=== PATIENT | male | born 1965 | race Caucasian/White ===

== ENCOUNTER 2019-09-03 17:58 | Observation (INO) | payer OTHER, SELFPAY ==
[2019-09-03] VITALS (8 sets, daily range): BP systolic 120–137; BP diastolic 73–92; PULSE 54–64; RESP 13–18; TEMP 36.5–36.6; O2SAT 99–100; BMI 33.4; BMI 32.1
--- NOTE | 2019-09-03 18:14 | EKG12_ITS ---
Test Reason : CP Blood Pressure : / mmHG Vent. Rate : 060 BPM Atrial Rate : 060 BPM P-R Int : 208 ms QRS Dur : 094 ms QT Int : 420 ms P-R-T Axes : 026 -24 034 degrees QTc Int : 420 ms Normal sinus rhythm Normal ECG Confirmed by JYOTI WAY, PAMELLA ([id number]), editor at large RENUKA CAZARES ([id number]) on 09/08/2019 12:48:22 PM Referred By: Sunday Hein Confirmed By:JACI MONTES MD
--- NOTE | 2019-09-03 18:20 | ED.VISSUMM ---
- ER Visit Summary Date of Service: 09/03/19 Chief Complaint: Chest pain History of Present Illness: The patient is a 53 M presenting with chest pain. He states this started this morning. Pain has been intermittent. It is worsened with exertion. He also has dyspnea with exertion. He has dizziness with no syncope. He has had nausea with no vomiting. He denies diaphoresis. He states that he has had increasing lower leg swelling over the past couple of months. He is not on Lasix. He has a history of previous CABG and aortic valve replacement. Strong family history of heart disease. He is not a smoker. Physical Examination: Vitals are stable. Patient is afebrile. Alert no acute distress. HEENT exam is unremarkable. Neck is supple. Lungs are clear and equal bilaterally. Heart is regular rate and rhythm. Abdomen is soft nontender nondistended. Extremities symmetric edema Skin is warm and dry. No focal neurologic deficit. Remainder of exam is unremarkable. Emergency Department Course and Treatment: Patient was given aspirin on arrival. EKG is sinus rhythm rate of 60 with no acute ischemic changes. CBC, chemistries unremarkable other than BUN 24, creatinine 1.35. Troponin is negative. BNP 91.1. Chest x-ray shows nonacute portable x-ray examination of the chest. On reevaluation, patient is resting comfortably. Discussed with the hospitalist for observation. Disposition: Observation Impression: Chest pain This note was generated with [employer] dictation software. It may contain incorrect words, spelling, and punctuation that were not noted in review of the chart prior to signing ED Disposition - Plan for ED Patient: Referrals: Care Physician,No Primary [Primary Care Provider] -
[2019-09-03] MEDS: Aspirin 81 MG TAB.CHEW 324 MG PO (18:21)
[2019-09-03 18:23] LABS: Absolute Lymphocyte Count 1.07 X10^3/uL (0.83-4.51); Basophil# 0.04 X10^3/uL; Basophil% 0.8 % (0-1); Eosinophil# 0.22 X10^3/uL; Eosinophils% 4.5 % (0-5); Hematocrit 35.7 % (40-54); Hemoglobin 11.3 g/dL (13.0-16.5); Lymphocyte # 1.07 X10^3/ul (4.0); Mean Corp Hgb Conc 31.7 g/dL (32-36); Mean Corpuscular Hgb 29.1 pg (27.0-32.0); Mean Platelet Vol. 10.3 fl (6.2-12.0); Monocyte# 0.57 X10^3/uL; Monocyte% 11.7 % (0-10); NRBC Flagged by Analyzer 0 % (0-5); Neutrophil # 2.96 X10^3/uL (2.7-7.7); Neutrophil % 60.8 % (47-70); Platelet Count 183 K/mm3 (150-450); RBC Distribution Width CV 12.5 % (11.6-14.6); RBC Distribution Width SD 42.2 fl (35.1-43.9); Red Blood Count 3.88 M/mm3 (4.6-6.2); White Blood Count 4.9 K/mm3 (4.4-11.0)
--- NOTE | 2019-09-03 18:26 | RAD_ITS ---
STUDY: X-RAY CHEST REASON FOR EXAM: Male, 53 years old. Chest pain TECHNIQUE: AP COMPARISON: None. FINDINGS: EKG leads project over the chest. Sternal wires and mediastinal surgical clips compatible with prior CABG. The lungs are clear and expanded. There is no demonstrated pleural abnormality. There is mild cardiac enlargement. Normal mediastinum and gris. Normal visualized pulmonary arteries. Normal visualized aortic arch and descending thoracic aorta. No acute bony process. There is no demonstrated abnormality of the visualized soft tissue structures of the upper abdomen. RAD/Chest 1 View (Portable) IMPRESSION: Nonacute portable x-ray examination of the chest. Electronically Signed: Cassius Noguera MD (Brooks) at 18:42 EST , Service support ,
[2019-09-03 18:47] LABS: Anion Gap 3 (5-15); BUN 24 mg/dL (7-18); BUN/Creat Ratio 17.8 RATIO (10-20); Calcium,Total 9.3 mg/dL (8.5-10.1); Chloride 104 mmol/L (98-107); Creatinine, Serum 1.35 mg/dL (0.70-1.30); EST Glomerular Filtration Rate 59 mL/min (>60); Est Glom Filt Rate - Afr Amer 71 mL/min (>60); Estimated Creatinine Clearance 71.52 ml/min; Glucose 100 mg/dL (74-106); Potassium 4.2 mmol/L (3.5-5.1); Sodium Level 137 mmol/L (136-145)
[2019-09-03 18:57] LABS: BNP,B-Type NATRIURETIC PEPTIDE 91.1 pg/mL (0-100)
--- NOTE | 2019-09-03 19:15 | HP.PCM_ITS ---
Problem List (1) Chest pain Status: Acute History of Present Illness Date of Admission: 09/03/19 Chief Complaint: chest pain The patient is a 53 year old M with a significant history of CAD status post CABG in 2013; bovine aortic valve in 2011; history of alcoholism and drug use who presented to the emergency department with chest pain. His chest pain began on the same day of presentation. His chest pain is located on the left side of his chest. He described the pain as episodic dullness with a tightness. The pain intensity is not more than 3. He denies any aggravating factors to the pain. When he takes a deep breath and when he slows down the pain improves. The chest pain is nonradiating. Associated with his symptoms is shortness of breath with exertion. Also he reports some swelling in his legs and leg cramps that has been going on for about the last 3 months. Because of leg cramps he has been sleeping in a recliner. He reported that in the last couple of weeks he has been having malaise. Past Medical History Medical History: Medical History (Last Updated 09/03/19 @ 21:25 by Sunday Hein MD) HTN (hypertension) I10 Allergies No Known Allergies Allergy (Verified 09/03/19 18:02) Home Medications: Ambulatory Orders Medication Instructions Recorded Buprenorphine HCl/Naloxone HCl 1 film SL BID 09/03/19 [Suboxone 8 mg-2 mg Sl Film] Lisinopril [Prinivil] 10 mg PO DAILY 09/03/19 Metoprolol(XL)Succ [Toprol Xl 50 mg PO DAILY 09/03/19 (Beta Jorge L)] Nitroglycerin [Nitrostat] 0.3 mg SL DAILY 09/03/19 Surgical History: coronary bypass surgery, - - Bovine aortic valve replacement; knee reconstruction surgery Lives: Roommate Smoking Status: Never smoker Alcohol: Sober Drugs: - - Sober - *Family History Maternal History Items: Cancer, Heart Disease Paternal History Items: Cancer - His father from metastatic cancer likely originating from his throat., Heart Disease - His father had several heart attacks with a first heart attack in his early 50s. Review of Systems Constitutional: Reports: Weight Change - 30 pounds weight gain in 5 months. Denies: Chills, Fever HEENT: Denies: Head Aches, Sinus Congestion, Sinus Drainage Cardiovascular: Reports: Chest Pain, Edema. Denies: Palpitations, Paroxysmal Noc. Dyspnea Respiratory: Reports: Shortness of breath upon exertion. Denies: Cough, Shortness of breath at rest, Sputum production Gastrointestinal: Reports: Nausea. Denies: Abdominal Pain, Vomiting Genitourinary: Denies: Dysuria Musculoskeletal: Denies: Joint Pain, Joint Tenderness Skin: Denies: Rash, Wounds Neurological: Denies: Numbness, Tingling, Focal weakness Psychiatric: Reports: Depression. Denies: Anxiety, Homicidal Ideations, Suicidal Ideations Hematologic/ Lymphatic: Denies: Easy Bruising, Easy Bleeding VTE Information - Inpt Only VTE Present on Admission: No VTE Mechan Device Prophylaxis: SCD's VTE Pharm Prophylaxis ordered?: No Patient Problems: Active and Suspected Problems (Last Updated 09/03/19 @ 21:25 by Sunday Hein MD) Chest pain (Acute) - Physical Exam Vitals/I&O's: Vital Signs Temp Pulse Resp BP Pulse Ox 97.7 F L 64 16 128/84 H 99 09/03/19 17:59 09/03/19 17:59 09/03/19 17:59 09/03/19 17:59 09/03/19 18:14 Oxygen Delivery Method Room Air Weight: 114.895 kg Body Mass Index (BMI) 33.4 General: Alert, Oriented x3, Cooperative HEENT: Atraumatic, PERRLA, EOMI, Normocephalic Neck: Supple, No JVD, Negative Carotid Bruits Lungs: Clear to auscultation, Normal air movement Cardiovascular: Regular rate, No murmurs Abdomen: Bowel Sounds Present, Soft, Non Tender Extremities: Capillary Refill Less than 3 Seconds, Edema - Bilateral feet Skin: No rashes, No breakdown Musculoskeletal: No Tenderness to Palpation of Joints or Extremities Neurological: Cranial nerves II-XII grossly intact Psych/Mental Status: Normal Affect, Appropriate Laboratory Results 09/03/19 18:02: WBC 4.9, RBC 3.88 L, Hgb 11.3 L, Hct 35.7 L, MCV 92.0, MCH 29.1, MCHC 31.7 L, RDW Std Deviation 42.2, RDW Coeff of Ramírez 12.5, Plt Count 183, MPV 10.3, Immature Gran % (Auto) 0.200, Neut % (Auto) 60.8, Lymph % (Auto) 22.0, Marshall % (Auto) 11.7 H, Eos % (Auto) 4.5, Baso % (Auto) 0.8, Absolute Neuts (auto) 3.0, Absolute Lymphs (auto) 1.07, Nucleated RBC % 0 09/03/19 18:02: Sodium 137, Potassium 4.2, Chloride 104, Carbon Dioxide 30.0, Anion Gap 3 L, BUN 24 H, Creatinine 1.35 H, Estim Creat Clear Calc 71.52, Est GFR (MDRD) Af Amer 71, Est GFR (MDRD) Non-Af 59 L, BUN/Creatinine Ratio 17.8, Glucose 100, Calcium 9.3, Troponin I < 0.015 09/03/19 18:02: B-Natriuretic Peptide 91.1 Assessment/Plan All Active Problems (Last Updated 09/03/19 @ 21:25 by Sunday Hein MD) Chest pain (Acute) The patient is a 53 year old M with a significant history of CAD status post CABG in 2013; bovine aortic valve in 2011; history of alcoholism and drug use; who presented to the emergency department with chest pain; dyspnea on exertion; bilateral leg swelling and leg cramps. Chest pain Placed on a monitored bed at pcu CXR independently reviewed confirms no acute cardiopulmonary process. EKG independently reviewed confirms sinus rhythm Aspirin 324 mg in emergency department. ASA 81 mg p.o. daily SL NTG 0.4 mg prn as needed for chest pain We will check lipid panel. Serial cardiac enzymes Stat EKG as needed for chest pain Dobutamine stress test in the AM if the cardiac enzymes are negative Bilateral leg cramps Patient reports bilateral leg cramps; present in the day and worsened at night. Will check ferritin and iron panel. If unremarkable consider restless leg syndrome Dyspnea on exertion and bilateral lower extremity swelling We will get an echocardiogram. Kerlix roll and nadir wrap to bilateral lower extremities. Elevate bilateral lower extremities when in bed or sitting. 2 g sodium diet. History of drug use Patient is now sober and on Suboxone; continued History of Alcohol abuse Now sober Counseled. DVT prophylaxis SCDs ordered Code Visit OBSV E&M: 45445 Initial observation care L3
--- NOTE | 2019-09-03 19:51 | ED.RN ---
changed pt socks to non-skid socks to get up to use restroom. noted non-pitting edema in ewelina legs. patient says legs have been cramping recently with the increased swelling. walked with no issue to bathroom.
--- NOTE | 2019-09-03 20:37 | STEWCON_ITS ---
Reason For Study: chest pain Stress Results Protocol: Dobutamine Stress Echo With Definity Maximum Predicted HR: 167 bpm Target HR: 142 bpm % Maximum Predicted HR: 90 % DurationHeart Rate Stage (mm:ss) (bpm) BP Dose Comment baseline 56 114/79 5ml total definity given stage 1 3:00 69 116/7510.00 stage 2 3:00 123 101/6520.00 stage 3 2:39 150 .00 recovery 78 112/63 Stress Duration: 8:39 mm:ss Maximum Stress HR: 150 bpm Baseline Echocardiogram Findings The estimated ejection fraction is 60 %. Stress Echo Wall motion Data Resting WM Intermediate WM Stress WM Resting Wall Motion Wall Motion Int. Wall Motion Stress No regional wall motion No regional wall motion No regional wall motion abnormalities noted. abnormalities noted. abnormalities noted. EKG Data Normal sinus rhythm. Occasional PVCs. During stress, there were no ST or T wave changes noted to suggest ischemia. Occasional PVCs. Symptoms with Stress The patient experinced no chest pain . Interpretation Summary The estimated ejection fraction is 60 %. Dobutamine stress echo is negative for dobutamine induced CP or EKG or Echocardiographic changes of ischemia. Contrast injection was performed. Ordering Physician: Sunday Hein Referring Physician: Sylvain Dumont MD Performed By: Gilda Mccormick, GABYCS, RVT
--- NOTE | 2019-09-03 20:37 | EKG12_ITS ---
Test Reason : CP ADMISSION Blood Pressure : / mmHG Vent. Rate : 058 BPM Atrial Rate : 058 BPM P-R Int : 208 ms QRS Dur : 098 ms QT Int : 442 ms P-R-T Axes : 046 -21 028 degrees QTc Int : 433 ms Sinus bradycardia Otherwise normal ECG When compared with ECG of 03-SEP-2019 18:04, MANUAL COMPARISON REQUIRED, DATA IS UNCONFIRMED Confirmed by JYOTI WAY, PAEMLLA ([id number]), editor continuity and script RENUKA CAZARES ([id number]) on 09/08/2019 12:51:27 PM Referred By: Sunday Hein Confirmed By:JACI MONTES MD
--- NOTE | 2019-09-03 20:37 | ECHOD_ITS ---
Reason For Study: CHEST PAIN Procedure This was a 2D Doppler, Color Flow transthoracic echocardiogram. Exam performed in department. Left Ventricle Normal LV size. The estimated ejection fraction is 60 %. No evidence for diastolic dysfunction. No regional wall motion abnormalities noted. Right Ventricle Normal RV size. Normal systolic function. Atria Normal left atrium. Normal right atrium. No doppler evidence for ASD. Mitral Valve There is no mitral valve stenosis. Trivial mitral valve insufficiency. Tricuspid Valve There is no tricuspid stenosis. Trivial tricuspid valve insufficiency. Pulmonary artery systolic pressure is 35 mmHg. Aortic Valve There is no aortic stenosis. No aortic valve insufficiency. Stable appearing bioprosthetic aortic valve apparatus. Pulmonic Valve There is no pulmonic valvular stenosis. Trivial pulmonic valve insufficiency. Great Vessels Normal aortic root. Pericardium/Pleural No pericardial effusion. MMode/2D Measurements & Calculations LVIDd: 5.3 cm IVSd: 1.2 cm LVOT diam: 2.5 cm LVIDs: 3.8 cm LVPWd: 1.1 cm LVOT area: 4.9 cm2 FS: 28.4 % Ao root diam: 4.5 cm LAV(MOD-bp): 60.9 ml LA A4 area: 19.9 cm2 LAV(MOD-bp) Indexed: 26.2 ml/m2 LAV(MOD-sp2): 60.8 ml LAV(MOD-sp4): 59.8 ml LA dimension(2D): 4.1 cm Time Measurements MV dec time: 0.17 sec Doppler Measurements & Calculations MV E max avinash: 95.7 cm/sec Lat Peak E' Avinash: 11.9 cm/sec Med Peak E' Avinash: 7.8 cm/sec MV A max avinash: 66.6 cm/sec E/E' lat: 8.1 E/E' med: 12.2 MV E/A: 1.4 Ao V2 max: 197.2 cm/sec LV V1 max: 79.0 cm/sec SV(LVOT): 109.7 ml Ao max P.4 mmHg LV V1 max P.5 mmHg Ao V2 mean: 145.9 cm/sec LV V1 mean P.5 mmHg Ao mean P.3 mmHg LV V1 mean: 59.9 cm/sec Ao V2 VTI: 49.8 cm LV V1 VTI: 22.2 cm ROSALINDA(I,D): 2.2 cm2 ROSALINDA(V,D): 2.0 cm2 PA V2 max: 103.5 cm/sec TR max avinash: 260.6 cm/sec TR max P.2 mmHg Interpretation Summary The estimated ejection fraction is 60 %. No evidence for diastolic dysfunction. Trivial mitral valve insufficiency. Trivial tricuspid valve insufficiency. Pulmonary artery systolic pressure is 35 mmHg. Stable appearing bioprosthetic aortic valve apparatus. Ordering Physician: Sunday Hein Referring Physician: NAPOLEON PCP Performed By: Gilda Mccormick, GREGORY, RVT
[2019-09-03 21:10] LABS: Ferritin 52 ng/mL (26-388); Iron 74 ug/dL (65-175); Iron Binding Capacity,Total 317 ug/dL (250-450); PERCENT IRON SATURATION 23.3 % (15.0-55.0)
[2019-09-04 03:29] VITALS: PULSE 55
--- NOTE | 2019-09-04 03:37 | NURSING ---
Pt had 8 beat run vtach. pt sleeping at this time. denied any complaints. vitals done. dr ruddy fortune
[2019-09-04 03:45] VITALS: BP 94/58; PULSE 57; RESP 18; TEMP 36.6; O2SAT 97
[2019-09-04 06:00] VITALS: BP 102/72; PULSE 54; RESP 17; TEMP 36.1; O2SAT 99
--- NOTE | 2019-09-04 06:00 | EKG12_ITS ---
Test Reason : AM EKG Blood Pressure : / mmHG Vent. Rate : 053 BPM Atrial Rate : 053 BPM P-R Int : 222 ms QRS Dur : 098 ms QT Int : 446 ms P-R-T Axes : 012 -22 029 degrees QTc Int : 418 ms Sinus bradycardia with 1st degree A-V block Otherwise normal ECG When compared with ECG of 03-SEP-2019 20:46, MANUAL COMPARISON REQUIRED, DATA IS UNCONFIRMED Confirmed by JYOTI WAY, PAMELLA ([id number]), news video editor RENUKA CAZARES ([id number]) on 09/08/2019 12:50:57 PM Referred By: Sunday Hein Confirmed By:JACI MONTES MD
[2019-09-04] MEDS: Aspirin E.C. 81 MG Tablet PO (06:03)
[2019-09-04 06:33] LABS: Cholesterol 108 mg/dL (200); High Density Lipoprotein 52 mg/dL; Magnesium 2.2 mg/dL (1.6-2.6); Triglycerides 95 mg/dL; Very Low Density Lipoprotein 19 mg/dL (5-40)
[2019-09-04] MEDS: Lisinopril 10 MG Tablet PO (06:46)
[2019-09-04 08:00] VITALS: BP 98/66; PULSE 52; PULSE 55; RESP 18; TEMP 36.7; O2SAT 98
[2019-09-04] MEDS: BUPRENORPHINE HCL 8 MG TAB.SUBL SL (10:45)
[2019-09-04 11:24] VITALS: PULSE 56
--- NOTE | 2019-09-04 11:55 | DCINST_ITS ---
- Discharge Diagnoses Current Active Problems: Current Active and Chronic Problems (Last Updated 09/03/19 @ 21:25 by Sunday Hein MD) 1. Chest pain, noncardiac You will use the following diet at home:: Cardiac Discharge Activity: Return to Normal Activity Call your doctor if you observe: Shortness of breath, Dizziness, Fainting spells, Chest pain Allergies/Adverse Reactions: Allergies No Known Allergies Allergy (Verified 09/03/19 18:02) Medications to take at Discharge Buprenorphine HCl/Naloxone HCl [Suboxone 8 mg-2 mg Sl Film] 1 film SL BID 09/03/19 Lisinopril [Prinivil] 10 mg PO DAILY 09/03/19 Metoprolol(XL)Succ [Toprol Xl (Beta Jorge L)] 50 mg PO DAILY 09/03/19 Nitroglycerin [Nitrostat] 0.3 mg SL DAILY 09/03/19 Aspirin E.C. [Ecotrin] 81 mg PO DAILY@0800 #30 tab 09/04/19 Atorvastatin Calcium 20 mg PO QHS #30 tab 09/04/19 The following prescriptions were given: Atorvastatin Calcium 20 mg PO QHS #30 tab Transmission Status: Pending to [facility] Aspirin E.C. [Ecotrin] 81 mg PO DAILY@0800 #30 tab Transmission Status: Received by [facility] Primary Care Physician: Care Physician,No Primary [Primary Care Provider] - Please follow up with your Primary Care Physician in: 1 Week Test Results: Test results from this visit will be discussed in further detail at your follow- up appointment, if applicable. Please Follow Up With: Primary Adobe Developer When: 1 Week Proposed Discharge Date: 09/04/19
[2019-09-04 12:22] VITALS: O2SAT 95
--- NOTE | 2019-09-04 13:18 | DS.PCM_ITS ---
<Didi Warren - Last Filed: 09/04/19 13:27> Discharge Date and Diagnosis Date of Admission: 09/03/19 Date of Discharge: 09/04/19 - Primary Discharge Diagnosis Active and Suspected Problems (Last Updated 09/03/19 @ 21:25 by Sunday Hein MD) 1. Chest pain, ACS ruled out 2. CAD with history of CABG in 2013 3. Status post aortic valve replacement 2011 with bovine valve 4. History of alcohol abuse and polysubstance abuse 5. Hypertension Hospital Course and Treatment Imaging Results: Diagnostic Data Chest X-Ray 09/03/19 18:26 IMPRESSION: Nonacute portable x-ray examination of the chest. Electronically Signed: Cassius Noguera MD (Brooks) at 18:42 EST , Service support , Operations: None Procedures: 2-D Echocardiogram, Stress test Summary of Care Provided: The patient is a 53 year old M admitted 09/03/2019 due to chest pain. 1. Chest pain, ACS ruled out-troponin negative. EKG without ST-T changes. Patient underwent stress echo which demonstrated an EF of 60%. Negative for ischemia. Echocardiogram demonstrated an EF of 60%, stable appearing bioprosthetic aortic valve. Follow-up with primary collar runner in 1 week. 2. CAD with history of CABG in 2013-placed on aspirin, statin. Continue beta- jorge l regimen. 3. Status post aortic valve replacement 2011 with bovine valve-stable per echo. 4. History of alcohol abuse and polysubstance abuse-currently sober, encouraged continued sobriety. 5. Hypertension-stable, continue metoprolol and lisinopril regimen. General: Alert, Oriented x3, Cooperative HEENT: Atraumatic, PERRLA, EOMI, Normocephalic Neck: Supple, No JVD, Negative Carotid Bruits Lungs: Clear to auscultation, Normal air movement Cardiovascular: Regular rate, No murmurs Abdomen: Bowel Sounds Present, Soft, Non Tender Extremities: Capillary Refill Less than 3 Seconds, Edema - Bilateral feet Skin: No rashes, No breakdown Musculoskeletal: No Tenderness to Palpation of Joints or Extremities Neurological: Cranial nerves II-XII grossly intact Psych/Mental Status: Normal Affect, Appropriate Patient seen and examined prior to discharge. Physical assessment as noted above. Patient is stable for discharge with follow up recommendations as noted above. This patient was seen by NACHO Powell under the supervision of Dr. Hughes. - Physical Exam Vitals/I&O's: Vital Signs Temp Pulse Resp BP Pulse Ox 98.1 F 56 L 18 98/66 95 09/04/19 08:00 09/04/19 11:24 09/04/19 08:00 09/04/19 08:00 09/04/19 12:22 Oxygen Delivery Method Room Air Weight: 241 lb 6.499 oz Body Mass Index (BMI) 32.1 Intake and Output for Last 24 Hours 09/02/19 09/03/19 09/04/19 23:59 23:59 23:59 Intake Total 120 / 120 Balance 120 / 120 Laboratory Results 09/03/19 18:02: WBC 4.9, RBC 3.88 L, Hgb 11.3 L, Hct 35.7 L, MCV 92.0, MCH 29.1, MCHC 31.7 L, RDW Std Deviation 42.2, RDW Coeff of Ramírez 12.5, Plt Count 183, MPV 10.3, Immature Gran % (Auto) 0.200, Neut % (Auto) 60.8, Lymph % (Auto) 22.0, Lipscomb % (Auto) 11.7 H, Eos % (Auto) 4.5, Baso % (Auto) 0.8, Absolute Neuts (auto) 3.0, Absolute Lymphs (auto) 1.07, Nucleated RBC % 0 09/03/19 18:02: Sodium 137, Potassium 4.2, Chloride 104, Carbon Dioxide 30.0, Anion Gap 3 L, BUN 24 H, Creatinine 1.35 H, Estim Creat Clear Calc 71.52, Est GFR (MDRD) Af Amer 71, Est GFR (MDRD) Non-Af 59 L, BUN/Creatinine Ratio 17.8, Glucose 100, Calcium 9.3, Troponin I < 0.015 09/03/19 18:02: B-Natriuretic Peptide 91.1 09/03/19 18:02: Iron 74, TIBC 317, Iron Saturation 23.3, Ferritin 52 09/03/19 20:45: Troponin I < 0.015 09/04/19 00:34: Troponin I < 0.015 09/04/19 05:20: Magnesium 2.2, Triglycerides 95, Cholesterol 108, LDL Cholesterol 37, VLDL Cholesterol 19, HDL Cholesterol 52 Current Medications Acetaminophen (Tylenol) 650 mg PO Q6H PRN PRN PRN Reason: Pain Score 1-10/Temp > 100.7 F Aspirin (Ecotrin) 81 mg PO DAILY@0800 ON LICENSE OF [facility] Last Admin: 09/04/19 06:03 Dose: 81 mg Documented by: Buprenorphine HCl (Buprenorphine Hcl) 8 mg SL BID ON LICENSE OF [facility] Last Admin: 09/04/19 10:45 Dose: 8 mg Documented by: Glucagon () 1 mg IM .X1 PRN PRN Reason: Hypoglycemia Dextrose (Dextrose 10%-Water) 250 mls @ 999 mls/hr IV .Q16M PRN; Protocol PRN Reason: HYPOGLYCEMIA Lisinopril (Zestril) 10 mg PO DAILY ON LICENSE OF [facility] Last Admin: 09/04/19 06:46 Dose: 10 mg Documented by: Melatonin (Melatonin) 3 mg PO QHS PRN PRN PRN Reason: INSOMNIA Nitroglycerin (Nitrostat) 0.4 mg SUBLINGUAL Q5M PRN PRN Reason: CARDIAC/CHEST PAIN Ondansetron HCl (Zofran) 4 mg IV Q8H PRN PRN PRN Reason: NAUSEA/VOMITING Sodium Chloride () 10 - 40 ml IV UD PRN PRN Reason: SALINE FLUSH Discharge Diet: Low fat/ Low Cholesterol Discharge Activity: Return to Normal Activity Call your doctor if you observe: Shortness of breath, Dizziness, Fainting spells, Chest pain Home Medications: Medications to take at Discharge Buprenorphine HCl/Naloxone HCl [Suboxone 8 mg-2 mg Sl Film] 1 film SL BID Lisinopril [Prinivil] 10 mg PO DAILY 09/03/19 Metoprolol(XL)Succ [Toprol Xl (Beta Jorge L)] 50 mg PO DAILY 09/03/19 Nitroglycerin [Nitrostat] 0.3 mg SL DAILY 09/03/19 Aspirin E.C. [Ecotrin] 81 mg PO DAILY@0800 #30 tab 09/04/19 Atorvastatin Calcium 20 mg PO QHS #30 tab 09/04/19 Following Prescrptions Were Given to Patient: Atorvastatin Calcium 20 mg PO QHS #30 tab Transmission Status: Received by [facility] Aspirin E.C. [Ecotrin] 81 mg PO DAILY@0800 #30 tab Transmission Status: Received by [facility] Primary Care Physician: Care Physician,No Primary [Primary Care Provider] - Please follow up with your Primary Care Physician in: 1 Week Please Follow Up With: Primary Cranberry Sorter When: 1 Week Disposition: Home Minutes spent on discharge:: 35 Patient Condition:: Stable Medical Necessity - Tobacco Use Smoking Status: Never smoker Tobacco Use: Non-smoker, Secondhand Meaningful Use Info Meaningful Use Diagnoses (Choose all that apply): None applicable <Jossue Hughes - Last Filed: 09/04/19 14:44> Hospital Course and Treatment Summary of Care Provided: This patient was seen in conjunction with NACHO Powell . I have independently interviewed and examined the patient and reviewed pertinent historical, laboratory, and other data. Please refer to NACHO Powell note for details of this patient's presentation, findings, and recommendations. I have reviewed NACHO Powell note and concur with documented findings. In brief, patient is a 53-year-old gentleman with past medical history single for coronary artery disease with previous CABG who presented with chest pain. Patient was placed in a monitored bed CO was ruled out serial cardiac enzymes subsequently underwent a stress echo which was negative for stress-induced ischemia Hospital course as documented above - Physical Exam Vitals/I&O's: Vital Signs Temp Pulse Resp BP Pulse Ox 98.1 F 56 L 18 98/66 95 09/04/19 08:00 09/04/19 11:24 09/04/19 08:00 09/04/19 08:00 09/04/19 12:22 Oxygen Delivery Method Room Air Weight: 109.5 kg Body Mass Index (BMI) 32.1 Intake and Output for Last 24 Hours 09/02/19 09/03/19 09/04/19 23:59 23:59 23:59 Intake Total 120 / 120 Balance 120 / 120 Laboratory Results 09/03/19 18:02: WBC 4.9, RBC 3.88 L, Hgb 11.3 L, Hct 35.7 L, MCV 92.0, MCH 29.1, MCHC 31.7 L, RDW Std Deviation 42.2, RDW Coeff of Ramírez 12.5, Plt Count 183, MPV 10.3, Immature Gran % (Auto) 0.200, Neut % (Auto) 60.8, Lymph % (Auto) 22.0, Lipscomb % (Auto) 11.7 H, Eos % (Auto) 4.5, Baso % (Auto) 0.8, Absolute Neuts (auto) 3.0, Absolute Lymphs (auto) 1.07, Nucleated RBC % 0 09/03/19 18:02: Sodium 137, Potassium 4.2, Chloride 104, Carbon Dioxide 30.0, Anion Gap 3 L, BUN 24 H, Creatinine 1.35 H, Estim Creat Clear Calc 71.52, Est GFR (MDRD) Af Amer 71, Est GFR (MDRD) Non-Af 59 L, BUN/Creatinine Ratio 17.8, Glucose 100, Calcium 9.3, Troponin I < 0.015 09/03/19 18:02: B-Natriuretic Peptide 91.1 09/03/19 18:02: Iron 74, TIBC 317, Iron Saturation 23.3, Ferritin 52 09/03/19 20:45: Troponin I < 0.015 09/04/19 00:34: Troponin I < 0.015 09/04/19 05:20: Magnesium 2.2, Triglycerides 95, Cholesterol 108, LDL Cholesterol 37, VLDL Cholesterol 19, HDL Cholesterol 52 Code Visit OBSV E&M: 95272 Observation care discharge
== END 2019-09-04 11:55 | disposition home or self-care (01) ==
LOC: ED 18:27 → PCU 19:44
PROVIDERS: Admitting Provider Hospitalist; Emergency Provider Emergency Medicine; Referring Provider Hospitalist; Visit Provider Internal Medicine
DX: R07.89 Other chest pain (principal); I25.10 Atherosclerotic heart disease of native coronary artery without angina pectoris; I10 Essential (primary) hypertension; R06.09 Other forms of dyspnea; M79.89 Other specified soft tissue disorders; F10.21 Alcohol dependence, in remission; F19.11 Other psychoactive substance abuse, in remission; Z95.2 Presence of prosthetic heart valve; Z95.1 Presence of aortocoronary bypass graft; Z79.899 Other long term (current) drug therapy; Z82.49 Family history of ischemic heart disease and other diseases of the circulatory system
CPT/HCPCS: 36415; 71045; 80048; 80061; 82728; 83540; 83550; 83735; 83880; 84484; 85025; 93005; 93017; 93306; 93350; 99218; 99285; J7040; Q9957; A4216; C8928; G0378